=== PATIENT | male | born 1980 | race Caucasian/White ===

== ENCOUNTER 2019-11-12 00:06 | Emergency (ER) | payer SELFPAY ==
[~2019-11-12] VITALS: Ht 172.7 cm; Wt 86.2 kg
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
[2019-11-12 00:14] VITALS: BP 134/87
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
--- NOTE | 2019-11-12 00:20 | NUR ---
ED Nurse Note: provided patient with shoes and nourishment. patient ambulated steady to the bathroom.
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
[2019-11-12 00:45] VITALS: BP 134/87
--- NOTE | 2019-11-12 00:45 | NUR ---
Homeless Discharge: Patient is being discharged from medical care. Awake, alert and oriented x3. After care instructions, including referral to community resources were given. Patient verbalized understanding of After care instructions; at this time patient does not request medications, equipment or placement. Patient signed patient consent in the medical record for patient destination upon discharge. All medical devices such as IV removed. Patient ambulated out with all personal belongings with steady gait.
== END 2019-11-12 00:45 | disposition home or self-care (01) ==
LOC: EDBD 00:06 → EMR 00:40
DX: S90.822A Blister (nonthermal), left foot, initial encounter (principal); S90.821A Blister (nonthermal), right foot, initial encounter; X58.XXXA Exposure to other specified factors, initial encounter; Y92.9 Unspecified place or not applicable
CPT/HCPCS: 99281